=== PATIENT | male | born 1980 | race Caucasian/White ===

== ENCOUNTER 2018-12-16 13:41 | Emergency (ER) | payer MEDICAID ==
[~2018-12-16] VITALS: Ht 172.7 cm; Wt 84.1 kg
[2018-12-16 13:50] VITALS: Ht 172.7 cm; Wt 84.1 kg
[2018-12-16] MEDS ORDERED: CIPRO500 MG PO (17:33)
[2018-12-16] MEDS ORDERED: HYDROCODONE-A1 UDTA2 PO (17:34)
[2018-12-16 18:22] VITALS: BP 140/98
== END 2018-12-16 18:22 | disposition home or self-care (01) ==
LOC: D.ER 13:41
DX: S92.401A Displaced unspecified fracture of right great toe, initial encounter for closed fracture (principal); W20.8XXA Other cause of strike by thrown, projected or falling object, initial encounter; F17.210 Nicotine dependence, cigarettes, uncomplicated; S91.111A Laceration without foreign body of right great toe without damage to nail, initial encounter